=== PATIENT | female | born 1960 | race Caucasian/White ===

== ENCOUNTER 2016-08-26 14:56 | Emergency (ER) | payer OTHER ==
[~2016-08-26] VITALS: Ht 160 cm; Wt 60.6 kg
[~2016-08-26 14:56] MED LIST: ALPRAZOLAM0.5 MG PO; ATARAX,VISTARIL25 MG PO; BUTTERBUR PO; CLOPIDOGREL75 MG PO; CYCLOBENZAPRINE5 MG PO; Calcium Citrate 600/ PO; Coumadin,Jantoven PO; DEPAKOTE500 MG PO; Depakote PO; ECOTRIN325 MG PO; EXCEDRIN MIGRA1 EAC3 PO; Ecotrin PO; Feosol PO; LIDODERM 5% P1 PATCH TP; LISINOPRIL5 MG PO; LYRICA100 MG PO; LYRICA150 MG PO; METOPROLOL SUCC25 MG PO; MOTRIN800 MG PO; Magnesium PO; OXYCODONE-APAP1 EACH PO; PAROXETINE HCL10 MG PO; PERCOCET 7.5-31 EACH PO; PLAVIX75 MG PO; PRINIVIL5 MG PO; Percocet 5/325,Endoc PO; QUETIAPINE FUM300 MG PO; RESTORIL 7.5 M7.5 MG PO; RESTORIL7.5 MG PO; Restoril PO; SIMVASTATIN40 MG PO; Senokot S,Pericolace PO; Tylenol Regular Stre PO; VALIUM5 MG PO; VERAPAMIL HCL120 M1 PO; VITAMIN B12-FO1 EACH PO; Vitamin B Complex PO; XANAX0.25 MG PO; ZANAFLEX6 MG PO; ZOCOR40 MG PO; ZOLPIDEM TARTRA10 MG PO; Zestril,Prinivil PO; Zinc Gluconate PO; [UNRECOGNIZED DRUG - CODE] PO
[2016-08-26 15:51] LABS: HEMATOCRIT 50.3 % (36.0-46.0); MCH 32.7 PG (29.0-34.0); MCHC 33.2 G/DL (30.0-36.0); MCV 98.6 FL (83-99); MEAN PLAT.VOLUME 8.5 uM^3 (9.5-12.4); PLATELET COUNT 353 K/uL (156-360); RBC DIS.WIDTH-CV 13.1 % (11.8-14.6); WHITE BLOOD COUNT 7.6 K/uL (4.1-10.2)
[2016-08-26 15:59] LABS: CHLORIDE 102 mEq/L (99-109); POTASSIUM 4.1 mEq/L (3.7-5.4); SODIUM 139 mEq/L (136-147)
[2016-08-26 16:01] LABS: GLUCOSE 102 mg/dL (70-99)
[2016-08-26 16:02] LABS: ANION GAP 11 MEQ/L (2-14)
[2016-08-26 16:05] LABS: GFR ESTIMATE (CALCULATED) > 59 mL/min/; UREA NITROGEN (BUN) 18 mg/dL (9-23)
[2016-08-26 16:51] LABS: ADD MIUA? NO; BILIRUBIN NEGATIVE; BLOOD NEGATIVE; COLOR YELLOW ((YELLOW)); GLUCOSE (STRIP) NEGATIVE; KETONES NEGATIVE; LEUKOCYTES NEGATIVE; NITRITE NEGATIVE; PROTEIN (STRIP) NEGATIVE; SPECIFIC GRAVITY 1.023 (1.000-1.030); UCUL ADDED? NO; UROBILINOGEN 0.2 MG/DL (0.2-1.0)
[2016-08-26 17:11] LABS: TOTAL BILIRUBIN 0.3 mg/dL (0.0-1.0)
[2016-08-26 17:12] LABS: ALKALINE PHOSPHATASE 112 IU/L (3-129)
[2016-08-26 17:15] LABS: DIRECT BILIRUBIN 0.1 mg/dL (0.0-0.3)
[2016-08-26 17:16] LABS: LIPASE 25 U/L (1.0-51.0)
[2016-08-26] MEDS ORDERED: ZOFRAN ODT4 MG PO (18:25)
[2016-08-26] MEDS ORDERED: ULTRAM50 MG PO (18:25)
[2016-08-26] MEDS ORDERED: MIRALAX255 GM PO (18:28)
[2016-08-26] MEDS ORDERED: CITROMA296 ML PO (18:28)
[2016-08-26 18:39] VITALS: BP 143/95
== END 2016-08-26 18:40 | disposition home or self-care (01) ==
LOC: EME 14:56
DX: K59.00 Constipation, unspecified (principal); R10.9 Unspecified abdominal pain; E11.9 Type 2 diabetes mellitus without complications; E78.5 Hyperlipidemia, unspecified; I10 Essential (primary) hypertension; I25.2 Old myocardial infarction; F17.200 Nicotine dependence, unspecified, uncomplicated
CPT/HCPCS: 74176; 80048; 80076; 81003; 83690; 85027; 99281; 99285; G0480; J1885; J2405; J7030

== ENCOUNTER 2017-03-14 19:49 | Emergency (ER) | payer OTHER ==
[~2017-03-14] VITALS: Ht 160 cm; Wt 68.2 kg
[~2017-03-14 19:49] MED LIST changes: +CITROMA296 ML PO; +MIRALAX255 GM PO; +ULTRAM50 MG PO; +ZOFRAN ODT4 MG PO
[2017-03-14 20:44] LABS: CHLORIDE 111 mEq/L (99-109); POTASSIUM 4.7 mEq/L (3.7-5.4); SODIUM 140 mEq/L (136-147)
[2017-03-14 20:46] LABS: GLUCOSE 108 mg/dL (70-99)
[2017-03-14 20:47] LABS: ANION GAP 16 MEQ/L (2-14)
[2017-03-14 20:48] LABS: TOTAL BILIRUBIN 0.2 mg/dL (0.0-1.0)
[2017-03-14 20:49] LABS: SERUM ETHYL ALCOHOL 267 mg/dL
[2017-03-14 20:50] LABS: ALKALINE PHOSPHATASE 127 IU/L (3-129); GFR ESTIMATE (CALCULATED) > 59 mL/min/
[2017-03-14 20:51] LABS: UREA NITROGEN (BUN) 20 mg/dL (9-23)
[2017-03-14 21:21] LABS: AMPHETAMINE NEGATIVE (500 ng/mL); BARBITURATES NEGATIVE (200 ng/mL); BENZODIAZEPINES NEGATIVE (150 ng/mL); COCAINE NEGATIVE (150 ng/mL); INTERNAL CONTROLS VALID? YES; METHADONE NEGATIVE (200 ng/mL); METHAMPHETAMINE NEGATIVE (500 ng/mL); OPIATES (MORPHINE) NEGATIVE (100 ng/mL); OXYCODONE NEGATIVE (100 ng/mL); PHENCYCLIDINE NEGATIVE (25 ng/mL); PROPOXYPHENE NEGATIVE (300 ng/mL); THC CANNABINOIDS NEGATIVE (50 ng/mL); TRICYCLIC ANTIDEPRESSANTS NEGATIVE (300 ng/mL)
[2017-03-14 21:41] LABS: MCH 33.5 PG (29.0-34.0); MCHC 34.2 G/DL (30.0-36.0); MCV 98.2 FL (83-99); MEAN PLAT.VOLUME 8.9 uM^3 (9.5-12.4); PLATELET COUNT 337 K/uL (156-360); RBC DIS.WIDTH-CV 13.1 % (11.8-14.6); RBC DIS.WIDTH-SD 47.6 % (39-53); RED BLOOD COUNT 4.89 M/uL (3.80-5.20); WHITE BLOOD COUNT 6.4 K/uL (4.1-10.2)
[2017-03-15 03:45] VITALS: BP 136/96
== END 2017-03-15 03:50 | disposition home or self-care (01) ==
LOC: EME 19:49
PROVIDERS: Emergency Medicine
DX: F10.129 Alcohol abuse with intoxication, unspecified (principal); F32.9 Major depressive disorder, single episode, unspecified; R45.1 Restlessness and agitation; Y90.8 Blood alcohol level of 240 mg/100 ml or more; I10 Essential (primary) hypertension; E78.5 Hyperlipidemia, unspecified; Z95.5 Presence of coronary angioplasty implant and graft; Z79.02 Long term (current) use of antithrombotics/antiplatelets; F17.200 Nicotine dependence, unspecified, uncomplicated
CPT/HCPCS: 80053; 85027; 90837; 93005; 99281; 99285; G0480; J1630; J7120